=== PATIENT | female | born 1960 | race Caucasian/White ===

== ENCOUNTER 2016-11-04 06:28 | Day surgery (SDC) | payer OTHER ==
[~2016-11-04] VITALS: Ht 167.6 cm; Wt 73.3 kg
[2016-11-04] MEDS: Lactated Ringer's 1,000 ML IV SCH ×2 (05:21→08:34)
[~2016-11-04 06:28] MED LIST: ACET1TAB12 PO; ARIP10TA14 PO; ASPI-973 PO; CeFAZolin 2 Gm/50 mL D5W IV Premix IV ONE; DEXT10TA PO; DULO60CA42 PO; GABA-502 PO; OXYB10TA PO; PRAM0.5T3 PO; PREC VAGINAL; RIZA10TA23 PO; [UNRECOGNIZED DRUG - MIXTURE]
[2016-11-04] MEDS ORDERED: Propofol 10,000 mCg/mL 20 mL Inj ONE (06:29)
[2016-11-04] MEDS ORDERED: fentaNYL-PF 50 mCg/mL 2 mL Inj ONE (06:29)
[2016-11-04 06:44] VITALS: BP 92/54; PULSE 54; RESP 12; O2SAT 100
--- NOTE | 2016-11-04 08:02 | PCM.HPANE ---
Patient Data Date of Service: Nov 04, 2016 Surgeon Admitting Provider: Attending Provider:Barbra Brian MD Primary Care Physician:Polo Jackson MD Other Provider:Burt Galan Anesthesia Reason for Visit Interstim Lead Revision (Cpt 25695) Ht/WT & BMI Height (Feet): 5 Height (Inches): 6.00 Weight (Kilograms): 73.300 Body Mass Index 25.00 Allergies Coded Allergies: beclomethasone dipropionate (Verified Allergy, Severe, bloody nose/blood clots, 11/03/16) fluoxetine (Verified Adverse Reaction, Unknown, "felt bad", 11/03/16) fluticasone (Verified Adverse Reaction, Unknown, blood clots, 11/03/16) venlafaxine (Verified Adverse Reaction, Unknown, "felt bad", 11/03/16) Past Anesthesia History Anesthesia History: Denies:: Abnormal Airway, Anesthesia Reactions, Difficult Intubation, Fam Anesthesia Reaction, Fam Malignant Hypertherm, Malignant Hyperthermia Diabetes History Hx Diabetes?: Yes Type of Diabetes: Type II Glycemic Control: Diet Controlled Current Bedside Blood Glucose: 88 MRSA MRSA: No Medications Blood Thinner: Aspirin Hypertension Medication: No (OFF MEDS W/ WEIGHT LOSS) Home Meds Incl Beta Nohemi: No Reported Medications Oxybutynin Chloride ER 10 Mg Tab.er.2410 Mg PO DAILY Ref 0 11/03/16 Gabapentin 300 Mg Uogsckh308 Mg PO HS Ref 0 11/03/16 Estrogens Conjugated (Premarin)1 Gm Vagcream1 Gm VAGINAL M W F #1 TUBE Ref 0 11/03/16 Dextroamphetamine 10 Mg Crdery42 Mg PO BID Ref 0 11/03/16 Acetaminophen/Codeine 300-30mg (Tylenol/Codeine #3)1 Each Tablet1-2 Tablet PO Q4H PRN Pain Ref 0 06/01/15 Pramipexole Dihydrochloride (Mirapex)0.5 Mg Tablet0.5 Mg PO HS 06/01/15 Rizatriptan ODT (Maxalt [employer])10 Mg Lqckdk39 Mg PO PRN migraine MR m5s-ZCV 30mg/24hrs 06/01/15 [hydroco/acet] 5/500 No Conflict Check1 Capsule Q6H PRN For Pain 06/01/15 Duloxetine (Cymbalta)60 Mg Capsule.dr120 Mg PO DAILY Ref 0 06/01/15 Aspirin 81 Mg Rgmtxv53 Mg PO DAILY Ref 0 06/01/15 Aripiprazole (Abilify)10 Mg Nnficl74 Mg PO DAILY Ref 0 06/01/15 Discontinued Reported Medications Metformin 500 Mg Zcgfdl971 Mg PO BID Ref 0 11/03/16 Lisinopril 20 Mg Foodgl03 Mg PO DAILY 30 Days Ref 0 11/03/16 Estradiol Patch (Minal)1 Each Patch.tdsw1 Each TRANSDERM WEEKLY 06/02/15 History History of ENT Problems?: Yes HEENT History: Positive for:: Sinus Problem (ALLERGIC RHINITIS S/P SEPTOPLASTY,UVULECTOMY) Denies:: Abnormal Airway Cataracts Difficult Intubation Hearing Problem Denture Type: None Teeth Condition: Within Normal Limits Other HEENT Pertinent History: S/P TONSILLECTOMY Hx of Heart Problems?: Yes Cardiovascular History: Positive for:: Chest Pain (2007 & 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.) Hypertension Denies:: Cardiac Surgery Congestive Heart Failure Edema Heart Murmur Irregular Heartbeat Pacemaker Thrombophlebitis Hx of Respiratory Problem?: Yes Respiratory History: Positive for:: Use of C-PAP Machine (ALPHONSE+ W/ CPAP SLEEP STUDY 07/2011) Denies:: Asthma COPD Oxygen Administration Pulmonary Embolism Tuberculosis Hx Neurologic Problems?: Yes Neurological History: Positive for:: Headaches Denies:: Alzheimer's Disease CVA Dizziness Parkinson's Disease Seizures Other Neurological Pertinent: CHRONIC PAIN SYNDROME RLS Hx of GI Problems?: Yes Other GI Pertinent History: S/P GASTRIC BYPASS (100# WEIGHT LOSS) Hx of Problems?: Yes Genitourinary History: Positive for:: Kidney Stones (S/P LITHOTRIPSY) Urinary Tract Infection (HX OF) Other Pertinent History: S/P BLADDER SLING C/OF FREQUENCY,URGENCY & INCONTINENCE Female Hx: Denies:: Currently Endometriosis Pelvic Inflammatory Problems with Breasts? Skin History: Denies:: History Skin Disorders? Pressure Ulcers Hx Musculoskeletal Problems?: Yes Musculoskeletal History: Positive for:: Back Injury Musculoskeletal Trauma (S/P LT SHOULDER RPR X3,WRIST/ELBOW RPR) Osteoarthritis Denies:: Joint Replacement Hx of Psycho/Social Problems?: Yes Psycho Social History: Positive for:: Anxiety (PTSD) Hx Depression Suicide Attempt Denies:: Bipolar Disorder Hx Surgeries?: Yes (lithotripsy, hysterectomy, tubal, septoplasty, uvulectomy, l shoulder x3) Hx Any Other Health Problems?: Yes Other History: Positive for:: Hospitalization (for depression and PTSD) Denies:: Cancer Endocrine Disease Thyroid Disease History Blood Transfusions: Denies:: Blood Transfuse Reaction Blood Transfusions Hx Diabetes: YesBedside Blood Glucose: 88 Hx Alcohol Use: Yes (RARE)Hx Substance Use: No Smoking Status: Former Smoker Have You Smoked inLast 12 mo: No Stop/Bang Treated for Sleep Apnea?: No Do You Have a CPAP Machine?: No S-Snoring: Do You Snore Loudly: Yes T-Tired: feel tired, fatigued: Yes O-Obsered: Observed not breath: Yes P-Blood Pressure: treated: Yes B- Body Mass Index > 35 kg/m2: No A- Age over 50: Yes N- Neck Large Circumference: No G- Gender Male: No ALPHONSE Total Score: 5 ALPHONSE Risk Assessment: High Risk, =/>3 Yes Risk Assessment Category Category 1A: Patient has history of documented sleep apnea, and HAS NOT received any narcotic, sedative or anesthesia administration during this stay. Category 1B: Patient has history of documented sleep apnea, and HAS received any narcotic , sedative or anesthesia administration during this stay Category 2: Patient has SUSPECTED Obstructive Sleep Apnea, and HAS received any narcotic , sedative or anesthesia administration during this stay. Category 3: Patient has SUSPECTED Obstructive Sleep Apnea and HAS NOT received narcotic, sedative or anesthesia administration during this stay. Category 4: Outpatient in Procedural Areas with known sleep apnea or who screen positive for High Risk via the STOP/BANG questionnaire. Exam Exam Vital Signs Vital Signs Date Time Temp Pulse Resp B/P Pulse Ox O2 Delivery O2 Flow Rate FiO2 11/04/16 07:30 CPAP/BIPAP 11/04/16 06:44 35.5 54 12 92/54 100 Room Air General Appearance: Alert, Oriented X3, Cooperative, No Acute Distress HEENT/AIRWAY: MP 2 Lungs: Clear to Auscultation, Clear to Percussion Heart: Exam Unremarkable, Regular Rate/Rhythm Meds/Labs/Diagnostics Admission Meds Current Medications Lactated Ringer's (Lr) 1,000 ml @ 120 mls/hr Q8H20M IV Last administered on t 05:21; Start 11/04/16 at 05:00; Stop 11/04/16 at 13:19 Bedside Blood Glucose: 88 Plan Impression Patient chart reviewed, patient interviewed and anesthestic plan with risks, benefits, and alternatives discussed, and informed consent obtained. ASA Physical Status: ASA2 Mod Systemic Disease Anesthetic Plan: MAC Bene/Risks/Altern/Consents: Yes HP Complete Prior to Induction: Yes David Laryr MD Nov 04, 2016 08:02
[2016-11-04] MEDS ORDERED: Bupivacaine-MPF 0.5% W/EPI 30 mL Inj INJ ONE (08:30)
[2016-11-04] MEDS ORDERED: Gentamicin 40 mg/mL 2 mL Inj IRRIGATION ONE (08:30)
[2016-11-04] MEDS ORDERED: Vancomycin 1,000 mg Inj IRRIGATION ONE (08:30)
[2016-11-04] MEDS ORDERED: Lactated Ringer's 500 ML IV PRN (08:46)
[2016-11-04] MEDS ORDERED: Lactated Ringer's 1,000 ML IV SCH (08:46)
[2016-11-04] MEDS ORDERED: EPHEDrine Sulfate 50 mg/mL Inj IVPUSH PRN (08:50)
[2016-11-04] MEDS ORDERED: Ondansetron 2 mg/mL 2 mL Inj IVPUSH PRN (08:50)
[2016-11-04] MEDS ORDERED: fentaNYL-PF 50 mCg/mL 2 mL Inj IVPUSH PRN (08:50)
[2016-11-04 10:10] VITALS: BP 104/55; PULSE 70; RESP 14; O2SAT 100
[2016-11-04] MEDS ORDERED: Ondansetron 8 mg ODT Tablet PO PRN (10:10)
[2016-11-04] MEDS ORDERED: oxyCODONE-Acetamin 5-325 mg Tablet PO PRN (10:10)
[2016-11-04 10:50] VITALS: BP 99/57; PULSE 65; RESP 16; O2SAT 96
--- NOTE | 2016-11-04 10:52 | PCM.ANEP1 ---
Post Anesthesia PACU Phase 1 Assessment Date of Service: Nov 04, 2016 Vital Signs Vital Signs Date Time Temp Pulse Resp B/P Pulse Ox O2 Delivery O2 Flow Rate FiO2 11/04/16 10:10 36.7 70 14 104/55 100 Room Air 11/04/16 07:30 CPAP/BIPAP 11/04/16 06:44 35.5 54 12 92/54 100 Room Air Anesthetic Administered: MAC Level of Alertness: Awake, talking GONZALES's with Equal Strength: Yes Pain: Yes Pain Scale Score: 2 Nausea or Vomiting: No CV Function & Hydration Stable: Yes Airway Device: Oxygen Delivery: Room Air Lungs: Clear to Auscultation, Clear to Percussion Dermatome Level: Full Sensation PACU Phase 2 Assessment Complications: No Follow up Care: N/A Patient Instructions Provided: N/A David Larry MD Nov 04, 2016 10:52
--- NOTE | 2016-11-07 08:32 | OP ---
[address] [address] OPERATIVE REPORT PATIENT: CATHY BARAJAS : 1960 MR#: [id number] ADMIT: 11/04/2016 JOB ID: [id number] DATE OF SURGERY: 11/04/2016 PROCEDURE: InterStim lead revision to include 1 Sacral neuroelectrode placement (quadripolar) 2 Flurosocopy imaging and guidance 3 Complex programming and setup of IPG SURGEON: Barbra Brian MD ANESTHESIA: Local with monitored anesthesia care and IV sedation. PREOPERATIVE DIAGNOSIS(ES): Intractable urinary urgency, frequency, urge incontinence. POSTOPERATIVE DIAGNOSIS(ES): Intractable urinary urgency, frequency, urge incontinence. INDICATIONS: The patient is a 56-year-old woman with a history of intractable urinary symptoms, having undergone InterStim approximately one year prior with outstanding results. However, over the course of the ensuing year, the patient underwent gastric bypass surgery, had over 100 pounds of weight loss and has diminished returns on her current lead placement. X-ray showed no obvious lead fracture. The patient was counseled about treatment options, and elected a lead revision. PROCEDURE IN DETAIL: After appropriate informed consent was obtained, the patient was brought to the operating room. She received IV antibiotics prior to onset of procedure. She was made comfortable in the prone position. All pressure points carefully padded. Cleaned, prepped, and draped in the usual sterile fashion. Fluoroscope was brought in. We used local anesthesia, half/half mixture of lidocaine and Marcaine. First of all, injecting the area overlying the IPG which is on the left. We sharply dissected down to it, removed the IPG. We were able to tug on the distal end of the lead, helping identify the location of the insertion point. We numbed this area up and incised down, and we were able to grasp the old lead, which was not functioning well, with an Allis and removed it in its entirety. We then used bony landmarks to andrea out the location of the medial borders of the foramen on both sides and began testing multiple locations. We initially stayed on the patient's left and ultimately transferred to the right side where in testing multiple locations, we were able to get a site which had low thresholds and Laure with good toe response as well. This was converted in Seldinger fashion into the quadripolar electrode which was visualized fluoroscopically to be in good position. We had good responses on all four electrodes with Laure below 1 on all 4 and toe as well, although not below 1. Bleeding was minimal. This was addressed with electrocautery and direct pressure. The access sheath was removed, allowing the tines to deploy, locking the lead into place. We then tunneled the distal end of the lead out to the pocket site. We removed at least half of the old capsule. Used electrocautery for hemostasis. Irrigated the wound out copiously with vancomycin and gentamicin solution. We attached the patient's original IPG using the ratcheted screwdriver. This fit nicely into the same pocket as before. Irrigated further with antibiotic solution and closed both wounds with a layer of 2-0 Vicryl suture and a layer of 4-0 Monocryl, as well as Dermabond. Lidocaine, Marcaine was used for long-acting postop pain control. Hemostasis was excellent. The patient tolerated the procedure very well. Was awakened, taken in stable condition to the one day surgery area., There the old IPG with new lead was set up fresh with a rate of 14, PW of 210 and program 1 0 neg 3+ 2 1 neg, 3+ 3 2 neg and 0+ 4 3 neg and 0+ pt felt sensation at low thresholds at appropriate location, tolerated well. [facility]
== END 2016-11-04 23:59 | disposition home or self-care (01) ==
LOC: SAS 06:28
PROVIDERS: ATTEND Urology
DX: N39.41 Urge incontinence (principal); R35.1 Nocturia; R35.0 Frequency of micturition; Z98.84 Bariatric surgery status; Z87.891 Personal history of nicotine dependence; G47.33 Obstructive sleep apnea (adult) (pediatric); G25.81 Restless legs syndrome; I10 Essential (primary) hypertension; Z45.49 Encounter for adjustment and management of other implanted nervous system device
CPT/HCPCS: 64581; 76000; C1778; J0690; J1200; J1580; J2250; J3010; J3370; J7120